=== PATIENT | female | born 1975 | race American Indian/Alaskan Native ===

== ENCOUNTER 2016-12-23 22:34 | Emergency (ER) | payer SELFPAY ==
[2016-12-23 22:51] VITALS: BP 143/67
[2016-12-23 23:42] LABS: Bacteria,Urine 1+ /HPF (Negative); Bilirubin,Urine NEG (Negative); Blood,Urine LG (Negative); Ketones,Urine NEG (Negative); Leukocyte Esterase,Urine MOD (Negative); Mucus,Urine FEW /HPF; Nitrite,Urine NEG (Negative); Urobilinogen,Urine < 2.0 mg/dL (<2.0)
[2016-12-24] MEDS ORDERED: ROCEPHIN IM STA (00:49)
[2016-12-24] MEDS ORDERED: XYLOCAINE 1% MPF 5 mL INFILTRATI ONE (00:49)
--- NOTE | 2016-12-24 00:49 | Emergency Department Report ---
ED Female HPI - General Chief complaint: Urogenital-Female Stated complaint: PAINFUL URINATION Time Seen by Provider: 12/24/16 00:49 Source: patient, family Mode of arrival: Ambulatory Limitations: No Limitations - History of Present Illness Initial comments: Patient here reports burning on urination 2 days. Denies any discharge. Patient reports that she is just coming off her period. Denies any abdominal pain. Denies any flank or back pain. Denies any nausea vomiting. Denies any fever or chills. No [id number] medication taken. MD Complaint: dysuria Onset/Timin -: days(s) Location: other (burning with urination) Radiation: non-radiating Severity scale (0 -10): 0 Worsens with: urination Are you Now?: No Last Menstrual Period: 12/19/16 EDC: 09/25/17 Associated Symptoms: dysuria. denies: vaginal discharge, vaginal bleeding, abdominal pain, nausea/vomiting, fever/chills, headaches, loss of appetite, hematuria, rash, seizure, shortness of breath, syncope, weakness - Related Data Sexually active: Yes Home Medications Medication Instructions Recorded Confirmed Last Taken Coreg 12.5 mg PO BID 12/23/16 12/23/16 Unknown Levothyroxine 50 mcg PO DAILY 12/23/16 12/23/16 Unknown Lisinopril 10 mg PO DAILY 12/23/16 12/23/16 Unknown Previous Rx's Medication Instructions Recorded Last Taken Type Nitrofurantoin [place]/M-Cryst 100 mg PO Q12HR #14 capsule 12/24/16 Unknown Rx [Macrobid CAP] Phenazopyridine [Pyridium] 200 mg PO TID PRN #9 tab 12/24/16 Unknown Rx Allergies Allergy/AdvReac Type Severity Reaction Status Date / Time No Known Allergies Allergy Unverified 12/23/16 22:51 ED Review of Systems ROS: Stated complaint: PAINFUL URINATION Other details as noted in HPI Comment: All other systems reviewed and negative Constitutional: denies: chills, fever ENT: denies: throat pain Respiratory: no symptoms reported Cardiovascular: denies: chest pain, palpitations, edema, syncope Gastrointestinal: denies: abdominal pain, nausea, vomiting Genitourinary: dysuria. denies: urgency, frequency, hematuria, discharge, abnormal menses, dyspareunia Musculoskeletal: denies: back pain, arthralgia Skin: denies: rash Neurological: denies: headache ED Past Medical Hx - Past Medical History Previous Medical History?: Yes Additional medical history: Dialated Cardiomyopathy, Hypothyroidism, - Surgical History Past Surgical History?: Yes Additional Surgical History: - Family History Family history: hypertension - Social History Smoking Status: Never Smoker Substance Use Type: None - Medications Home Medications: Home Medications Medication Instructions Recorded Confirmed Last Taken Type Coreg 12.5 mg PO BID 12/23/16 12/23/16 Unknown History Levothyroxine 50 mcg PO DAILY 12/23/16 12/23/16 Unknown History Lisinopril 10 mg PO DAILY 12/23/16 12/23/16 Unknown History Nitrofurantoin [place]/M-Cryst 100 mg PO Q12HR #14 capsule 12/24/16 Unknown Rx [Macrobid CAP] Phenazopyridine [Pyridium] 200 mg PO TID PRN #9 tab 12/24/16 Unknown Rx ED Physical Exam - General Limitations: No Limitations General appearance: alert, in no apparent distress - Head Head exam: Present: atraumatic, normocephalic, normal inspection - Eye Eye exam: Present: normal appearance, PERRL, EOMI. Absent: periorbital swelling , periorbital tenderness Pupils: Present: normal accommodation - ENT ENT exam: Present: normal exam, normal orophraynx, mucous membranes moist, TM's normal bilaterally, normal external ear exam - Neck Neck exam: Present: normal inspection, full ROM. Absent: tenderness, lymphadenopathy - Respiratory Respiratory exam: Present: normal lung sounds bilaterally. Absent: respiratory distress, chest wall tenderness - Cardiovascular Cardiovascular Exam: Present: regular rate, normal rhythm, normal heart sounds - GI/Abdominal GI/Abdominal exam: Present: soft, normal bowel sounds. Absent: distended, tenderness, guarding, rebound, rigid - Extremities Exam Extremities exam: Present: normal inspection, full ROM, normal capillary refill. Absent: tenderness, pedal edema - Back Exam Back exam: Present: normal inspection, full ROM. Absent: tenderness, CVA tenderness (R), CVA tenderness (L), muscle spasm, paraspinal tenderness, vertebral tenderness, rash noted - Neurological Exam Neurological exam: Present: alert, oriented X3, normal gait - Psychiatric Psychiatric exam: Present: normal affect, normal mood - Skin Skin exam: Present: warm, dry, intact, normal color. Absent: rash ED Course Vital Signs 12/23/16 12/23/16 22:38 22:43 Temperature 98.1 F 98.1 F Pulse Rate 84 84 Respiratory 18 Rate Blood Pressure 143/67 Blood Pressure 134/67 [Left] O2 Sat by Pulse 97 97 Oximetry - Reevaluation(s) Reevaluation #1: 12/24/16 01:21 Patient was found to have acute cystitis without hematuria and urine culture sent and she was given Rocephin 1 g IM and emergency room for UTI and will be sent him on antibiotic. She had no adverse reaction from medication. ED Medical Decision Making - Lab Data Lab Results 12/23/16 Range/Units 23:02 Urine Color Yellow (Yellow) Urine Turbidity Slightly-cloudy (Clear) Urine pH 5.0 (5.0-7.0) Ur Specific [place] 1.023 (1.003-1.030) Urine Protein 100 mg/dl (Negative) mg/dL Urine Glucose (UA) Neg (Negative) mg/dL Urine Ketones Neg (Negative) mg/dL Urine Blood Lg (Negative) Urine Nitrite Neg (Negative) Urine Bilirubin Neg (Negative) Urine Urobilinogen < 2.0 (<2.0) mg/dL Ur Leukocyte Esterase Mod (Negative) Urine WBC (Auto) 14.0 H (0.0-6.0) /HPF Urine RBC (Auto) 24.0 (0.0-6.0) /HPF U Epithel Cells (Auto) 2.0 (0-13.0) /HPF Urine Bacteria (Auto) 1+ (Negative) /HPF Urine Mucus Few /HPF Urine HCG, Qual Negative (Negative) urine cx pending Patient coming off menses - Medical Decision Making ED course: Patient here complaining of dysuria and with one to have acute cystitis without hematuria. She has large amount of blood in her urine because she is coming off her menses. Patient given Rocephin 1 g IM and emergency room to cover urinary tract infection and urine culture sent. She was discharged home with prescription for Macrobid and Pyridium and to follow-up at [facility] as she does not have a primary care physician. Critical care attestation.: If time is entered above; I have spent that time in minutes in the direct care of this critically ill patient, excluding procedure time. ED Disposition Clinical Impression: Acute cystitis with hematuria, Dysuria Disposition: DISCHARGED TO HOME OR SELFCARE Is pt being admited?: No Does the pt Need Aspirin: No Condition: Stable Instructions: Urinary Tract Infection in Women (ED), Dysuria (ED) Additional Instructions: Primary care physician please follow-up with [facility] for follow -up urinary tract infection. Take Antibiotic as prescribed. Prescriptions: Nitrofurantoin Trinity/M-Cryst [Macrobid CAP] 100 mg PO Q12HR #14 capsule Phenazopyridine [Pyridium] 200 mg PO TID PRN #9 tab PRN Reason: DYSURIA Referrals: [facility] [Outside] - 12/28/16 Forms: Accompanied Note, Work/School Release Form(ED)
== END 2016-12-24 01:38 | disposition home or self-care (01) ==
LOC: ED 22:34
DX: N30.01 Acute cystitis with hematuria (principal); E03.9 Hypothyroidism, unspecified
CPT/HCPCS: 81001; 81025; 87086; 96372; 99283; J0696

== ENCOUNTER 2017-04-14 11:30 | Emergency (ER) | payer SELFPAY ==
[2017-04-14 12:02] LABS: Basophils % (Auto) 0.2 % (0.0-1.8); Eosinophils % (Auto) 1.1 % (0.0-4.3); Hematocrit 35.4 % (30.3-42.9); Hemoglobin 11.4 gm/dl (10.1-14.3); Mean Corpuscular HGB Conc 32 % (30-34); Mean Corpuscular Volume 74 fl (79-97); Platelet Count 270 K/mm3 (140-440); Red Blood Count 4.79 M/mm3 (3.65-5.03); Red Cell Distribution Width 15.1 % (13.2-15.2); White Blood Count 9.9 K/mm3 (4.5-11.0)
[2017-04-14 12:03] LABS: Mean Corpuscular Hemoglobin 24 pg (28-32)
[2017-04-14 12:28] LABS: Anion Gap 15 mmol/L; BUN/Creatinine Ratio 13.33; Blood Urea Nitrogen 12 mg/dL (7-17); Calcium 9.2 mg/dL (8.4-10.2); Carbon Dioxide 27 mmol/L (22-30); Chloride 100.7 mmol/L (98-107); Glucose 108 mg/dL (65-100); Potassium 4.1 mmol/L (3.6-5.0); Sodium 139 mmol/L (137-145)
[2017-04-14 12:42] LABS: Bacteria,Urine 2+ /HPF (Negative); Bilirubin,Urine NEG (Negative); Blood,Urine LG (Negative); Ketones,Urine NEG (Negative); Leukocyte Esterase,Urine MOD (Negative); Mucus,Urine 2+ /HPF; Nitrite,Urine NEG (Negative); Urobilinogen,Urine < 2.0 mg/dL (<2.0)
[2017-04-14 12:49] LABS: RBC,Urine > 182.0 /HPF (0.0-6.0); WBC,Urine > 182.0 /HPF (0.0-6.0)
--- NOTE | 2017-04-14 17:57 | Emergency Department Report ---
ED Female HPI - General Chief complaint: Abdominal Pain Stated complaint: LOW ABD PAIN/BLOOD IN URINE Time Seen by Provider: 04/14/17 17:38 Source: patient Mode of arrival: Ambulatory Limitations: No Limitations - History of Present Illness Initial comments: Patient is a 41-year-old female with history of hypothyroidism, cardiomyopathy and frequent UTIs presenting today because of suprapubic pain and dysuria. Patient states that symptoms started about 3 days ago. She states that she has significant urinary frequency without polyuria, has no associated fevers, chills , back pain, nausea, vomiting. Patient states this is similar to her prior UTIs. She has no vaginal bleeding or discharge. Her LMP was March 20. - Related Data Home Medications Medication Instructions Recorded Confirmed Last Taken Coreg 12.5 mg PO BID 12/23/16 12/23/16 Unknown Levothyroxine 50 mcg PO DAILY 12/23/16 12/23/16 Unknown Lisinopril 10 mg PO DAILY 12/23/16 12/23/16 Unknown Previous Rx's Medication Instructions Recorded Last Taken Type Nitrofurantoin [place]/M-Cryst 100 mg PO Q12HR #14 capsule 12/24/16 Unknown Rx [Macrobid CAP] Phenazopyridine [Pyridium] 200 mg PO TID PRN #9 tab 12/24/16 Unknown Rx Phenazopyridine [Pyridium] 200 mg PO TID #6 tab 04/14/17 Unknown Rx Sulfamethoxazole/Trimethoprim 1 each PO BID #10 tablet 04/14/17 Unknown Rx [Bactrim DS TAB] Allergies Allergy/AdvReac Type Severity Reaction Status Date / Time No Known Allergies Allergy Verified 04/14/17 11:43 ED Review of Systems ROS: Stated complaint: LOW ABD PAIN/BLOOD IN URINE Other details as noted in HPI Comment: All other systems reviewed and negative Constitutional: denies: chills, fever Cardiovascular: denies: chest pain, palpitations Gastrointestinal: denies: vomiting, diarrhea Genitourinary: urgency, dysuria, frequency Skin: denies: rash Psychiatric: denies: anxiety ED Past Medical Hx - Past Medical History Previous Medical History?: Yes Additional medical history: Dialated Cardiomyopathy, Hypothyroidism, - Surgical History Past Surgical History?: Yes Additional Surgical History: - Social History Smoking Status: Never Smoker Substance Use Type: None - Medications Home Medications: Home Medications Medication Instructions Recorded Confirmed Last Taken Type Coreg 12.5 mg PO BID 12/23/16 12/23/16 Unknown History Levothyroxine 50 mcg PO DAILY 12/23/16 12/23/16 Unknown History Lisinopril 10 mg PO DAILY 12/23/16 12/23/16 Unknown History Nitrofurantoin [place]/M-Cryst 100 mg PO Q12HR #14 capsule 12/24/16 Unknown Rx [Macrobid CAP] Phenazopyridine [Pyridium] 200 mg PO TID PRN #9 tab 12/24/16 Unknown Rx Phenazopyridine [Pyridium] 200 mg PO TID #6 tab 04/14/17 Unknown Rx Sulfamethoxazole/Trimethoprim 1 each PO BID #10 tablet 04/14/17 Unknown Rx [Bactrim DS TAB] ED Physical Exam - General Limitations: No Limitations General appearance: alert, in no apparent distress - Eye Eye exam: Present: normal appearance - Neck Neck exam: Present: normal inspection - Respiratory Respiratory exam: Absent: respiratory distress - Cardiovascular Cardiovascular Exam: Present: regular rate - GI/Abdominal GI/Abdominal exam: Present: soft. Absent: distended, tenderness - Neurological Exam Neurological exam: Present: alert - Psychiatric Psychiatric exam: Present: normal affect - Skin Skin exam: Present: intact ED Course Vital Signs 04/14/17 04/14/17 04/14/17 11:44 16:35 19:01 Temperature 97.9 F 98.3 F 98.7 F Pulse Rate 78 72 72 Respiratory 18 18 18 Rate Blood Pressure 135/77 Blood Pressure 128/73 112/70 [Left] O2 Sat by Pulse 100 98 100 Oximetry ED Medical Decision Making - Lab Data Result diagrams: 04/14/17 11:53 04/14/17 11:53 - Medical Decision Making Symptoms are most consistent with a UTI, labs are unremarkable other than urinalysis which is again consistent with a UTI Start the patient on antibiotics. Critical care attestation.: If time is entered above; I have spent that time in minutes in the direct care of this critically ill patient, excluding procedure time. ED Disposition Clinical Impression: UTI (urinary tract infection) Qualifiers: Urinary tract infection type: acute cystitis Hematuria presence: with hematuria Qualified Code(s): N30.01 - Acute cystitis with hematuria Disposition: TO HOME OR SELFCARE Is pt being admited?: No Does the pt Need Aspirin: No Condition: Stable Instructions: Phenazopyridine (By mouth), Urinary Tract Infection in Women (ED) Additional Instructions: Please follow-up with the primary care doctor in the next 3-5 days. Return to the emergency room if the symptoms significantly worsen or you develop any new symptoms. Remember to continue to wipe from front to back and clean the pelvic area and urinate after sex. Prescriptions: Phenazopyridine [Pyridium] 200 mg PO TID #6 tab Sulfamethoxazole/Trimethoprim [Bactrim DS TAB] 1 each PO BID #10 tablet Referrals: PRIMARY CARE, [Primary Care Provider] - 3-5 Days
[2017-04-14] MEDS ORDERED: TORADOL IM ONE (18:10)
[2017-04-14 19:02] VITALS: BP 112/70
== END 2017-04-14 19:04 | disposition home or self-care (01) ==
LOC: ED 11:30
DX: N39.0 Urinary tract infection, site not specified (principal); E03.9 Hypothyroidism, unspecified
CPT/HCPCS: 36415; 80048; 81001; 81025; 85025; 87086; 99283